=== PATIENT | male | born 1990 | race Caucasian/White ===

== ENCOUNTER 2017-02-19 07:41 | Outpatient (CLI) | payer OTHER ==
[~2017-02-19 07:41] MED LIST: GADOBUTROL 15 MMOL/15 ML VIAL ONE
[2017-02-19] MEDS ORDERED: GADOBUTROL 15 MMOL/15 ML VIAL IVP ONE (08:34)
--- NOTE | 2017-02-19 09:36 | MRI Report ---
EXAM: MRI BRAIN AND PITUITARY WITHOUT AND WITH CONTRAST. EXAM DATE: 02/19/2017 08:54 AM. CLINICAL HISTORY: Benign neoplasm of pituitary. Elevated prolactin. Possible pituitary adenoma. Patie nt has been lactating for 4 months. Weight gain for 3 years. Infertility for 5 years. COMPARISON: None. TECHNIQUE: Multiplanar, multisequence T1-weighted and fluid-sensitive MR sequences of the brain and p ituitary were performed. Other: None. IV Contrast: 12 mL Gadavist. FINDINGS: Brain Volume: Normal for age. Parenchyma: No masses, infarcts, or hemorrhage. No white matter lesions identified. No abnormal enhan cement. Pituitary: 4.8 mm craniocaudally x 9.6 mm AP x 17.4 mm transversely. Subtle mild heterogeneous enhan cement is seen peripherally in the pituitary gland bilaterally. There is a more focal subtle heteroge neous area of increased T2 signal noted in the left lateral aspect of the pituitary gland. On dynamic series (series 1001, image 28) there is a 3 mm focus of hypoenhancement in this region. No hemorrhag e or enlargement. The superior margin is concave. The pituitary stalk is normal in thickness. The adj acent parasellar structures are within normal limits. Ventricles/Cisterns: No hydrocephalus. No abnormal extra-axial fluid collection or hemorrhage. Orbits: Symmetric and unremarkable. IAC: Symmetric and unremarkable. Vasculature: Normal signal flow void is seen in the major arterial structures at the skull base. The dural sinuses are patent and enhance normally. Sinuses: No acute sinus disease. Bones: No focal pathologic appearing marrow signal changes. Other: None. IMPRESSION: 1.Normal MRI of the brain without and with contrast. 2.A 3 mm focus of subtle heterogeneous signal and hypoenhancement in the left lateral aspect of the p ituitary gland. An indistinct pituitary microadenoma would be a consideration. [facility] Referring Provider Line: [phone] SITE ID: [id number]
== END 2017-02-19 07:42 | disposition home or self-care (01) ==
LOC: DI 07:41
PROVIDERS: ATTEND Pediatrics
DX: D35.2 Benign neoplasm of pituitary gland (principal)
CPT/HCPCS: 70553; A9585